=== PATIENT | male | born 1970 | race Caucasian/White ===

== ENCOUNTER 2019-11-14 12:17 | Emergency (ER) | payer BC ==
[2019-11-14 12:25] VITALS: TEMP 97.9
[2019-11-14] MEDS ORDERED: HYDROcodone/APAP 5-325MG 1 EACH TAB PO STA (12:41)
[2019-11-14] MEDS ORDERED: LIDOCAINE 1% INJ 10MG/ML (20 ML MDV) SQ ONE (12:41)
[2019-11-14] MEDS ORDERED: SODIUM CHLORIDE 0.9% 500 ML 500 ML IV STA (12:41)
[2019-11-14] MEDS ORDERED: SODIUM CHLORIDE 0.9% 1,000 ML IV STA (12:41)
[2019-11-14 13:07] LABS: Basophils % (A) 0 %; Eosinophils # (A) 0.1 k/uL (0-0.7); Eosinophils % (A) 1 %; HCT 42.5 % (39.0-53.0); Lymphocytes # (A) 1.6 k/uL (1.0-4.8); Lymphocytes % (A) 17 %; MCHC 32.9 g/dL (31.0-37.0); MCV 100.1 fL (80.0-100.0); Mean Platelet Volume 6.8; Monocytes # (A) 0.4 k/uL (0-1.0); Monocytes % (A) 5 %; Neutrophils # (A) 6.9 k/uL (1.3-7.7); Neutrophils % (A) 75 %; Platelet Count 329 k/uL (150-450); RBC 4.25 m/uL (4.30-5.90); RDW 11.4 % (11.5-15.5); WBC 9.1 k/uL (3.8-10.6)
--- NOTE | 2019-11-14 13:11 | ED ---
Dizziness HPI - General Chief Complaint: Dizziness Stated Complaint: fall Time Seen by Provider: 11/14/19 12:29 Source: patient Mode of arrival: ambulatory Limitations: no limitations - History of Present Illness Initial Comments: 49-year-old male presenting today for chief complaint of syncopal episode with right eyebrow laceration. Patient states he was drinking heavily last night. He states he woke up this morning stood up fast he states he saw stars like he experiences on occasion when he stands up too fast but this time he fell forward passing out, but states he was awake when he hit his right eyebrow. Patient saw him and thought he looked green. Patient admit to mild headache. Denies neck pain, states bleeding is controlled.Patient denies nausea, vomiting, visual changes, chest pain, shortness of breath. Patient states he was not SOB, or experiencing chest pain when he passed out. Patient states she simply stood up too fast. Patient denies any other complaints, however upon arrival patient appears well. - Related Data Home Medications Medication Instructions Recorded Confirmed Citalopram Hydrobromide [CeleXA] 20 mg PO DAILY 11/14/19 11/14/19 Ibuprofen [Motrin Ib] 400 mg PO Q6H PRN 11/14/19 11/14/19 Varenicline Tartrate [Chantix 0.5 mg PO BID 11/14/19 11/14/19 Starter Pack] Allergies Allergy/AdvReac Type Severity Reaction Status Date / Time No Known Allergies Allergy Verified 11/14/19 14:02 Review of Systems ROS Statement: Those systems with pertinent positive or pertinent negative responses have been documented in the HPI. ROS Other: All systems not noted in ROS Statement are negative. Past Medical History Past Medical History: No Reported History History of Any Multi-Drug Resistant Organisms: None Reported Past Surgical History: No Surgical Hx Reported Past Psychological History: Anxiety Smoking Status: Current every day smoker Past Alcohol Use History: Daily Past Drug Use History: None Reported General Exam - General Exam Comments Initial Comments: General: The patient is awake and alert, in no distress, and does not appear acutely ill. Eye: +3 mm pupils are equal, round and reactive to light, extra-ocular movements are intact. No nystagmus. There is normal conjunctiva bilaterally. No signs of icterus. Ears, nose, mouth and throat: There are moist mucous membranes and no oral lesions. No raccoon no Steven sign. Neck: The neck is supple, there is no tenderness or JVD. No tenderness to palpation of the cervical spine midline or paravertebral full range of motion without pain Cardiovascular: There is a regular rate and rhythm. No murmur, rub or gallop is appreciated. Respiratory: Lungs are clear to auscultation, respirations are non-labored, saroj ath sounds are equal. No wheezes, stridor, rales, or rhonchi. Gastrointestinal: Soft, non-distended, non-tender abdomen without masses or organomegaly noted. There is no rebound or guarding present. Musculoskeletal: Normal ROM, no tenderness. Strength 5/5. Sensation intact. Radial pulses equal bilaterally 2+. Neurological: A&O x 3. CN II-XII intact, There are no obvious motor or sensory deficits. Coordination appears grossly intact. Speech is normal. Skin: Skin is warm and dry and no rashes. large irregular laceration, skin flap over the right eyebrow approximately 2.3 cm. No LE edema. Psychiatric: Cooperative, appropriate mood & affect, normal judgment. Limitations: no limitations Course Vital Signs 11/14/19 11/14/19 12:21 14:53 Temperature 97.9 F Pulse Rate 94 79 Respiratory 18 16 Rate Blood Pressure 138/89 144/90 O2 Sat by Pulse 98 99 Oximetry EKG Findings - EKG Comments: EKG Findings:: Ventricular rate 84 bpm, NV interval 142 ms, QRS duration 82 ms, QT/QTC 364/430 milliseconds. This is normal sinus no ST elevation or depression. Medical Decision Making - Medical Decision Making Very well-appearing 49-year-old male presenting today for chief complaint of syncopal episode after standing up fast. With the right eyebrow injury. Patient states he saw stars as if he stood up too fast patient states this time he fell forward he thinks he passed out for a few seconds and woke up when he hit his right eyebrow. Patient states that he did not have any chest pain or shortness of breath. Patient states he was out drinking last night and thinks he is dehydrated. Patient is given IV fluids in the emergency department. Troponin negative. EKG no acute findings. Patient's laboratory studies stable. Patient states had mild headache CT of the brain without acute abdomen on it. At this time I discussed case with Dr. Carmona given history, laboratory studies, PE findings he is agreeable to discharge with PCP f/u. Patient agreeable and prefers discharge. - Lab Data Result diagrams: 11/14/19 12:32 11/14/19 12:32 Lab Results 11/14/19 11/14/19 11/14/19 Range/Units 12:32 12:32 12:32 WBC 9.1 (3.8-10.6) k/uL RBC 4.25 L (4.30-5.90) m/uL Hgb 14.0 (13.0-17.5) gm/dL Hct 42.5 (39.0-53.0) % MCV 100.1 H (80.0-100.0) fL MCH 33.0 (25.0-35.0) pg MCHC 32.9 (31.0-37.0) g/dL RDW 11.4 L (11.5-15.5) % Plt Count 329 (150-450) k/uL Neutrophils % 75 % Lymphocytes % 17 % Monocytes % 5 % Eosinophils % 1 % Basophils % 0 % Neutrophils # 6.9 (1.3-7.7) k/uL Lymphocytes # 1.6 (1.0-4.8) k/uL Monocytes # 0.4 (0-1.0) k/uL Eosinophils # 0.1 (0-0.7) k/uL Basophils # 0.0 (0-0.2) k/uL PT 10.1 (9.0-12.0) sec INR 1.0 (<1.2) APTT 22.3 (22.0-30.0) sec Sodium 138 (137-145) mmol/L Potassium 4.7 (3.5-5.1) mmol/L Chloride 107 (98-107) mmol/L Carbon Dioxide 25 (22-30) mmol/L Anion Gap 6 mmol/L BUN 13 (9-20) mg/dL Creatinine 0.86 (0.66-1.25) mg/dL Est GFR (CKD-EPI)AfAm >90 (>60 ml/min/1.73 sqM) Est GFR (CKD-EPI)NonAf >90 (>60 ml/min/1.73 sqM) Glucose 106 H (74-99) mg/dL Calcium 9.0 (8.4-10.2) mg/dL Magnesium 2.0 (1.6-2.3) mg/dL Total Bilirubin 0.5 (0.2-1.3) mg/dL AST 29 (17-59) U/L ALT 17 (4-49) U/L Alkaline Phosphatase 53 (38-126) U/L Creatine Kinase (55-170) U/L Troponin I (0.000-0.034) ng/mL Total Protein 7.2 (6.3-8.2) g/dL Albumin 4.4 (3.5-5.0) g/dL Urine Color Urine Appearance (Clear) Urine pH (5.0-8.0) Ur Specific [place] (1.001-1.035) Urine Protein (Negative) Ur Protein Confirm (Negative) Urine Glucose (UA) (Negative) Urine Ketones (Negative) Urine Blood (Negative) Urine Nitrite (Negative) Urine Bilirubin (Negative) Ur Bilirubin Confirm (Negative) Urine Urobilinogen (<2.0) mg/dL Ur Leukocyte Esterase (Negative) Urine RBC (0-5) /hpf Urine WBC (0-5) /hpf Ur Squamous Epith Cells (0-4) /hpf Urine Bacteria (None) /hpf Urine Mucus (None) /hpf 11/14/19 11/14/19 11/14/19 Range/Units 12:32 12:32 13:50 WBC (3.8-10.6) k/uL RBC (4.30-5.90) m/uL Hgb (13.0-17.5) gm/dL Hct (39.0-53.0) % MCV (80.0-100.0) fL MCH (25.0-35.0) pg MCHC (31.0-37.0) g/dL RDW (11.5-15.5) % Plt Count (150-450) k/uL Neutrophils % % Lymphocytes % % Monocytes % % Eosinophils % % Basophils % % Neutrophils # (1.3-7.7) k/uL Lymphocytes # (1.0-4.8) k/uL Monocytes # (0-1.0) k/uL Eosinophils # (0-0.7) k/uL Basophils # (0-0.2) k/uL PT (9.0-12.0) sec INR (<1.2) APTT (22.0-30.0) sec Sodium (137-145) mmol/L Potassium (3.5-5.1) mmol/L Chloride (98-107) mmol/L Carbon Dioxide (22-30) mmol/L Anion Gap mmol/L BUN (9-20) mg/dL Creatinine (0.66-1.25) mg/dL Est GFR (CKD-EPI)AfAm (>60 ml/min/1.73 sqM) Est GFR (CKD-EPI)NonAf (>60 ml/min/1.73 sqM) Glucose (74-99) mg/dL Calcium (8.4-10.2) mg/dL Magnesium (1.6-2.3) mg/dL Total Bilirubin (0.2-1.3) mg/dL AST (17-59) U/L ALT (4-49) U/L Alkaline Phosphatase (38-126) U/L Creatine Kinase 140 (55-170) U/L Troponin I <0.012 (0.000-0.034) ng/mL Total Protein (6.3-8.2) g/dL Albumin (3.5-5.0) g/dL Urine Color Karen Urine Appearance Clear (Clear) Urine pH 7.0 (5.0-8.0) Ur Specific [place] 1.015 (1.001-1.035) Urine Protein 2+ (Negative) Ur Protein Confirm (Negative) Urine Glucose (UA) Negative (Negative) Urine Ketones 1+ (Negative) Urine Blood Negative (Negative) Urine Nitrite Negative (Negative) Urine Bilirubin 4+ H (Negative) Ur Bilirubin Confirm (Negative) Urine Urobilinogen 2.0 (<2.0) mg/dL Ur Leukocyte Esterase Small (Negative) Urine RBC 2 (0-5) /hpf Urine WBC 1 (0-5) /hpf Ur Squamous Epith Cells <1 (0-4) /hpf Urine Bacteria Rare H (None) /hpf Urine Mucus Rare H (None) /hpf Disposition Clinical Impression: Syncope, Facial laceration Disposition: HOME SELF-CARE Condition: Good Instructions (If sedation given, give patient instructions): Care For Your Stitches (ED), Syncope (ED), Facial Laceration (ED) Additional Instructions: Please use medication as discussed. Please follow-up with family doctor in the next 2 days-for syncope and bilirubin in urine, if experience any pre-syncope, syncope must present to the ER. Suture removal in 5-6 days here in the ER. Please return to emergency room if the symptoms increase or worsen or for any other concerns. Is patient prescribed a controlled substance at d/c from ED?: No Referrals: Azeem Hinson MD [Primary Care Provider] - 1-2 days Time of Disposition: 14:05
[2019-11-14 13:17] LABS: Partial Thromboplastin Time 22.3 sec (22.0-30.0); Prothrombin Time 10.1 sec (9.0-12.0)
[2019-11-14 13:18] LABS: ALT 17 U/L (4-49); AST 29 U/L (17-59); African American GFR (CKD) >90 (>60 ml/min/1.73 sqM); Albumin 4.4 g/dL (3.5-5.0); Alkaline Phosphatase 53 U/L (38-126); Anion Gap 6 mmol/L; Blood Urea Nitrogen 13 mg/dL (9-20); Carbon Dioxide 25 mmol/L (22-30); Chloride 107 mmol/L (98-107); Glucose 106 mg/dL (74-99); Non-African American GFR(CKD) >90 (>60 ml/min/1.73 sqM); Potassium 4.7 mmol/L (3.5-5.1); Sodium 138 mmol/L (137-145); Total Bilirubin 0.5 mg/dL (0.2-1.3); Total Protein 7.2 g/dL (6.3-8.2)
--- NOTE | 2019-11-14 13:28 | CT ---
EXAMINATION TYPE: CT brain kenaine wo con DATE OF EXAM: 11/14/2019 COMPARISON: NONE HISTORY: Fall, open wound above Rt eye CT DLP: 1343.2 mGycm Automated exposure control for dose reduction was used. TECHNIQUE: CT scan of the head and cervical spine are performed without contrast. FINDINGS: BRAIN: 60 structures are midline. There is no evidence of hydrocephalus. No acute focal lesion, mass effect or midline shift is seen. I do not see evidence of intracranial blood. Visualized portions of the paranasal sinuses and mastoids are clear. IMPRESSION: NORMAL CT SCAN OF THE BRAIN. CERVICAL SPINE: Visualized portions of the lungs are clear. Prevertebral soft tissues are normal. There is a reversal of the normal cervical lordosis. This is replaced by mild kyphosis. Alignment is maintained. Atlantoaxial relationships are normal. There is degenerative disc disease and hypertrophi c spondylosis at all levels with relative sparing of C2-3. This is worst at C6-7 and C4-5. There is u ncovertebral joint disease at C6-7. The facets are reasonably well-maintained. No definite protrusion is seen. No fractures are identified. IMPRESSION: 1. NO ACUTE OSSEOUS LESION. 2. DEGENERATIVE CHANGE.
--- NOTE | 2019-11-14 13:29 | XR ---
EXAMINATION TYPE: XR chest 2V DATE OF EXAM ORDERED: 11/14/2019 HISTORY: syncope. REFERENCE: None. FINDINGS: The lungs are clear. Pleural spaces are clear. Heart size is normal. IMPRESSION: NORMAL CHEST.
[2019-11-14 14:17] LABS: Bacteria,Urine Rare /hpf; Mucus,Urine Rare /hpf; RBC,Urine 2 /hpf (0-5); Squamous Epithelial Cell,Urine <1 /hpf (0-4); WBC,Urine 1 /hpf (0-5)
[2019-11-14 14:22] LABS: Appearance,Urine Clear (Clear); Color,Urine Amber
[2019-11-14 14:23] LABS: Bilirubin,Urine 4+ (Negative); Blood,Urine Negative (Negative); Glucose,Urine (UA) Negative (Negative); Ketones,Urine 1+ (Negative); Leukocyte Esterase,Urine Small (Negative); Nitrite,Urine Negative (Negative); Protein,Urine 2+ (Negative); Specific Gravity,Urine 1.015 (1.001-1.035)
[2019-11-14 14:55] VITALS: BP 144/90; PULSE 79; RESP 16
--- NOTE | 2019-11-19 | CDI ---
Dear Annabella Cerrato PA-C: Please do addendum procedure note if any performed as Lidocaine HCL was given in Medication List. Thank You, Gloria Prajapati, Level Vial Marker. If you have any questions, please contact [employer] at [phone]. [facility]
== END 2019-11-14 15:14 | disposition home or self-care (01) ==
LOC: EC 12:17
DX: S01.111A Laceration without foreign body of right eyelid and periocular area, initial encounter (principal); R55 Syncope and collapse; E86.0 Dehydration; F41.9 Anxiety disorder, unspecified; F17.200 Nicotine dependence, unspecified, uncomplicated; Z79.899 Other long term (current) drug therapy; W01.198A Fall on same level from slipping, tripping and stumbling with subsequent striking against other object, initial encounter; Y93.89 Activity, other specified
CPT/HCPCS: 99284; 12011; 96360; 36415; 93005; 80053; 82550; 83735; 84484; 85025; 85610; 85730; 81001; 71046; 72125; 70450; J2001

== ENCOUNTER → 2021-07-02 | Outpatient (CLI) | payer BC ==
[2021-07-02 18:54] LABS: Basophils # (A) 0.02 X 10*3/uL (0.00-0.10); Basophils % (A) 0.5 %; Eosinophils # (A) 0.01 X 10*3/uL (0.04-0.35); Eosinophils % (A) 0.3 %; HCT 40.8 % (39.6-50.0); HGB 13.5 g/dL (13.0-17.0); Lymphocytes # (A) 1.65 X 10*3/uL (0.90-5.00); Lymphocytes % (A) 44.4 %; MCH 31.5 pg (27.0-32.0); MCHC 33.1 g/dL (32.0-37.0); MCV 95.1 fL (80.0-97.0); Mean Platelet Volume 9.3 fL (9.5-12.2); Monocytes # (A) 0.68 X 10*3/uL (0.20-1.00); Monocytes % (A) 18.3 %; Neutrophils # (A) 1.35 X 10*3/uL (1.80-7.70); Neutrophils % (A) 36.2 %; Platelet Count 274 X 10*3/uL (140-440); RBC 4.29 X 10*6/uL (4.40-5.60); RDW 12.2 % (11.5-14.5); WBC 3.72 X 10*3/uL (4.50-10.00)
[2021-07-03 03:49] LABS: African American GFR (CKD) 101.8 (60.0-200.0); Albumin 4.6 g/dL (3.8-4.9); Albumin/Globulin Ratio 2.03 (1.60-3.17); Anion Gap 13.9 mmol/L (4.00-12.00); BUN/Creat Ratio 18.07 Ratio (12.00-20.00); Carbon Dioxide 22.7 mmol/L (21.6-31.8); Globulin 2.3 g/dL (1.6-3.3); Non-African American GFR(CKD) 87.8 (60.0-200.0); Potassium 4.4 mmol/L (3.5-5.5); Total Bilirubin 0.3 mg/dL (0.30-1.20); Total Protein 6.9 g/dL (6.2-8.2)
== END | disposition home or self-care (01) ==
LOC: LABWHC1 13:49
PROVIDERS: ATTEND Physician Assistant Medical
DX: R50.9 Fever, unspecified (principal)
CPT/HCPCS: 36415; 80053; 83605; 85025; 87040; 87086